=== PATIENT | female | born 1995 | race Caucasian/White ===

== ENCOUNTER 2023-09-16 09:48 | Outpatient (CLI) | payer BC, SELFPAY ==
--- NOTE | ~2023-09-16 | US_ITS ---
EXAMINATION: US OB <= 14 weeks fetus DATE: 09/16/2023 10:20 INDICATION: Uncertain gestational dates TECHNIQUE: Real-time transabdominal and transvaginal obstetric ultrasound. FINDINGS: No prior studies for comparison. The uterus measures 16.5 x 7.3 x 9.8 cm. There is an intrauterine gestational sac, with pole id entified. The crown rump length measures 5.37 cm, which correlates with a estimated gestational age of 12 weeks 0 days. heart tones are identified measuring 156 BPM. The ovaries are not visuali zed. IMPRESSION: 1. SL IUP with an EGA of 12 weeks, 0 days (EDC by current ultrasound of 03/30/2024). Reviewed, dictated and finalized at location A. 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 SL IUP with an EGA of 12 weeks, 0 days (EDC by current ultrasound of 024).
== END 2023-09-16 09:49 ==
PROVIDERS: PCP Advanced Practice Midwife; Visit Provider Advanced Practice Midwife
DX: Z36.87 Encounter for antenatal screening for uncertain dates (principal); Z3A.12 12 weeks gestation of pregnancy
CPT/HCPCS: 76801

== ENCOUNTER 2023-11-17 14:53 | Outpatient (CLI) | payer BC, SELFPAY ==
--- NOTE | ~2023-11-17 | US_ITS ---
EXAMINATION: US OB /maternal detail DATE: 11/17/2023 15:34 INDICATION: anatomy scan during second trimester TECHNIQUE: Multiple obstetric sonographic images performed. FINDINGS: There is a single living fetus in breech presentation. The placenta is posterior with caudal margin 3.9 cm from the internal cervical os. Amniotic fluid volume is subjectively normal. heart rate of 147 beats per minute. The following anatomy was identified as normal: Ventricles, choroid plexus, falx and cava septum pellucidum Cerebellum and cisterna magna Nuchal fold Upper lip Spine Heart Diaphragm Stomach Kidneys Bladder 3 vessel cord and cord insertion Bilateral upper and lower extremities including hands and feet The following biometric data were obtained: BPD: 4.7 cm -> 20 weeks 2 days Head circumference: 17.6 cm -> 20 weeks 1 days Abdominal circumference: 15.6 cm -> 20 weeks 5 days Femur length: 3.2 cm -> 19 weeks 6 days These measurements are concordant. Head circumference to abdominal circumference ratio: 1.16 (normal range 1.07-1.25). Estimated weight: 345 g (+/-) 52 g. or 12 oz. (+/-) 2 oz. IMPRESSION: 1. Single living fetus with breech presentation with heart rate of 147 bpm. 2. Gestational age by ultrasound of 20 weeks 2 day(s) (+/-) 1 week 3 day(s) with ultrasound estimat ed date of delivery (GENESIS) of 04/03/2024. Estimated weight is 19th percentile by Hadlock criteria when 03/30/2024 is used as the GENESIS. Please correlate with clinical information or earlier ultrasounds for most accurate GENESIS. 3. Normal survey. Reviewed, dictated and finalized at location A. IMPRESSION: 1. Single living fetus with breech presentation with heart rate of 147 b pm. 2. Gestational age by ultrasound of 20 weeks 2 day(s) (+/-) 1 week 3 day(s) w ith ultrasound estimated date of delivery (GENESIS) of 04/03/2024. Estimated w eight is 19th percentile by Hadlock criteria when 03/30/2024 is used as the GENESIS. Please correlate with clinical information or earlier ultrasounds for most accu rate GENESIS. 3. Normal survey.
== END 2023-11-17 14:54 ==
PROVIDERS: PCP Obstetrics & Gynecology Gynecology; Visit Provider Obstetrics & Gynecology Gynecology
DX: Z36.9 Encounter for antenatal screening, unspecified (principal)
CPT/HCPCS: 76805

== ENCOUNTER 2024-03-08 15:54 | Outpatient (CLI) | payer BC, SELFPAY ==
--- NOTE | ~2024-03-08 | US_ITS ---
EXAMINATION: US OB follow up DATE: 03/08/2024 16:18 INDICATION: COVID during third trimester . Assess amniotic fluid index. TECHNIQUE: Real-time ultrasound of the pelvis was performed. The interpreting radiologist was not pre sent for the study. COMPARISON: None. FINDINGS: There is a single living fetus in vertex presentation. The placenta is posterior and not low-lying. heart rate is 138 beats per minute (bpm). The amniotic fluid index is 19.7 cm, which is normal (5th%-95%: 7.7-24.9 cm at 36 weeks estimated gestational age). The following biometric data were obtained: BPD: 8.9 cm -> 36 weeks 0 days Head circumference: 32.3 cm -> 36 weeks 4 days Abdominal circumference: 32.4 cm -> 36 weeks 2 days Femur length: 7.0 cm -> 35 weeks 5 days These measurements are concordant. Head circumference to abdominal circumference ratio: 1.00 (normal range 0.92-1.08). Estimated weight: 2869 g (+/-) 430 g or 6 lbs. 5 oz. (+/-) 15 oz. IMPRESSION: 1. Single living fetus in vertex presentation with heart rate of 138 bpm. 2. Normal amniotic fluid index of 19.7 cm. 3. Estimated weight is 37th percentile by Hadlock criteria when 03/30/2024 is used as the estimat ed date of delivery (GENESIS). Please correlate with clinical information or earlier ultrasounds for most accurate GENESIS. Reviewed, dictated and finalized at location A. IMPRESSION: 1. Single living fetus in vertex presentation with heart rate of 138 bpm. 2. Normal amniotic fluid index of 19.7 cm. 3. Estimated weight is 37th percentile by Hadlock criteria when 03/30/2024 is used as the estimated date of delivery (GENESIS). Please correlate with clinical information or earlier ultrasounds for most accurate GENESIS.
== END 2024-03-08 15:55 ==
PROVIDERS: PCP Obstetrics & Gynecology Gynecology; Visit Provider Advanced Practice Midwife
DX: O99.891 Other specified diseases and conditions complicating pregnancy (principal); O98.519 Other viral diseases complicating pregnancy, unspecified trimester; U07.1 COVID-19
CPT/HCPCS: 76816

== ENCOUNTER 2024-04-02 16:50 | Inpatient (IN) | payer BC, SELFPAY ==
[2024-04-02] VITALS (44 sets, daily range): BP systolic 108–139; BP diastolic 54–74; PULSE 87–169; TEMP 36.7–37; O2SAT 98–100; BMI 27.3
--- NOTE | 2024-04-02 17:30 | WPDANESEPP ---
Anes - Eval Pre Procedure Procedure: Labor epidural Date/Time: 04/02/24 17:30 Surgeon: karlo Preop Diagnosis: Abdominal pain with contractions Pre Op Diagnosis: Labor Patient Data Age: 29 Gender: F Height: Weight: Allergies Allergy/AdvReac Type Severity Reaction Status Date / Time bacitracin Allergy Rash Verified 03/09/24 15:35 [From Neosporin ([id number])] neomycin Allergy Rash Verified 03/09/24 15:35 [From Neosporin ([id number])] polymyxin B Allergy Rash Verified 03/09/24 15:35 [From Neosporin ([id number])] Home Medications Medication Instructions Recorded Confirmed Type aspirin 81 mg tablet 81 mg PO DAILY 03/09/24 03/09/24 History prenat.vits,darshana,lgh-aute-uowxp 1 tablet 03/09/24 History : gestational age HCG: positive Patient hx anesthesia problems: none Family hx anesthesia problems: none Results Review: All pre-operative results and documents have been reviewed as part of the pre-operative evaluation. [facility] Past Medical History Medical History Heart murmur and not yet delivered Family History Family History Grandparent Heart disease Grandparent Dementia Grandparent Diabetes mellitus Social History Social History Substance use: never Spiritual care concerns: No Exam Day of Procedure 04/02/24 17:30 Patient weight: normal Airway: Mallampati scale class II
[2024-04-02 17:45] LABS: Basophils Percent Auto 0.2 % (0.2-1.2); Eosinophils Absolute Auto 0.1 K/mm3 (0-0.3); Eosinophils Percent Auto 0.8 % (0-4.4); Hematocrit 40.4 % (37.0-47.0); Hemoglobin 13.9 g/dL (12.0-15.0); Immature Granulocyte Absolute 0.06 K/mm3 (0.00-0.031); Immature Granulocyte Percent A 0.4 % (0-0.5); Lymphocytes Absolute Auto 2.24 K/mm3 (0.9-3.2); Lymphocytes Percent Auto 15.6 % (18.3-44.2); Mean Corpuscular HGB Conc 34.4 g/dl (32-36); Mean Corpuscular Hemoglobin 30.9 pg (26-34); Mean Corpuscular Volume 89.8 fl (80-100); Mean Platelet Volume 9.9 fl (7.4-10.4); Monocytes Absolute Auto 0.9 K/mm3 (0.1-0.6); Monocytes Percent Auto 6.5 % (2.6-8.5); Neutrophils Percent Auto 76.5 % (45.5-73.1); Platelet Count Result 285 k/mm3 (150-375); Red Cell Distribution Width 13.1 % (11.5-14.5); White Blood Count 14.4 K/mm3 (4.5-10.0)
[2024-04-02] MEDS: LACTATED RINGERS 1,000 ML 125 ML IV CONT (18:13)
[2024-04-02] MEDS: AMPICILLIN 2 GM/NS 100 ML 2 GM/100 ML BAG IVPB (18:13)
[2024-04-02 18:35] LABS: HIV 1/2 Ab P24 Ag Result Negative (Negative)
--- NOTE | 2024-04-02 18:35 | LDADM ---
This patient, Jaky Tsai, was admitted to Labor/Delivery/Recovery 109 on 04/02/24 at 16:50. Plans for labor, pain management and were discussed with patient. Patient/family oriented to hospital policies and general routines including ID bracelet, bed and alarms, visiting hours, pain management, procedures, bathroom and other care routines, personal items, smoking policy, room service/diet and guest tray routines, security routines, and visiting hours. Patient/Family are encouraged to report perceived risks to care and to ask questions if they do not understand what they are told or what they should do. See OBIX for further documentation.
[2024-04-02 18:52] LABS: Rapid Plasma Reagin Non-Reactive (NonReactive)
--- NOTE | 2024-04-02 19:33 | WPDOBADMIT ---
Obstetrics - Admit Note Admission Note: record reviewed. No pertinent additions to the history and/or any subsequent changes in the physical findings that are not consistent with the expected course of the were found. Additions to the history and/or subsequent changes in the physical findings follow. None.
[2024-04-02] MEDS: fentaNYL CITRATE INJ (*CRX) 100 MCG/2 ML VIAL 50 MCG IV PUSH (21:28)
[2024-04-02] MEDS: AMPICILLIN 1 GM/NS 50 ML 1 GM/50 ML BAG IVPB (22:10)
[2024-04-02] MEDS: ONDANSETRON INJ 4 MG/2 ML VIAL IV PUSH (23:49)
[2024-04-02] MEDS: FAMOTIDINE 20 MG/2 ML VIAL IV PUSH (23:49)
[2024-04-03] VITALS (50 sets, daily range): BP systolic 99–134; BP diastolic 52–98; PULSE 40–158; RESP 16–20; TEMP 36.6–37.1; O2SAT 77–100
--- NOTE | 2024-04-03 01:22 | PM.OBPNLAB ---
Pain Control Date/time seen: 04/03/24 01:18 Pain control: tolerating well and epidural Comments: pushing with contractions Pelvic Exam Amniotic membrane status: Ruptured (meconium) Status status: Category ll Assessment and Plan Assessment: active labor Comments: pushing with contractions with RN. Much edema noted to introitus. Suspect OP position. Plan to remove sneed catheter with pushing and reposition pt frequently to allow for optimal descent. Anticipate vaginal .
--- NOTE | 2024-04-03 01:25 | P.PCNOB_ITS ---
OB - Vaginal Delivery Note Procedure Delivery date: 04/03/24 Events: Positive Group B Strep (GBS) and Other (covid infection in pregancy) Induction method: None Delivery monitor: External FHT and External Uterine Route of delivery: Episiotomy description: None Laceration Description: Perineal - 2nd Degree and Labial (right) Delivery repair: vicryl Specimen: No Quantitative Blood Loss (ml): 375 Anesthesia type: Epidural Disposition: Floor Complications: No immediate complications Narrative: Jaky arrived in spontaneous labor and made steady cervical change to complete dilation. She pushed well with contractions. Baby originally in OPP position and rotated to SHERITA. She brought the head to complete crown. With the next push, she gently delivered the head followed by the anterior shoulder. With the next maternal push the posterior shoulder and the remainder of the infant were delivered. The was placed on the maternal abdomen and dried and stimulated by nursery staff. After 1 minute of life, the cord was doubly clamped and cut. Cord blood, cord gases, and cord segment were obtained. The placenta delivered spontaneously in the Schultze presentation. A second- degree perineal laceration involving the right labia was repaired in the usual fashion. There was excellent hemostasis and uterine tone. All delivery counts correct. Mother and baby skin to skin in the delivery room. [place] Baby Date of : 04/03/24 Time of : 02:10 Gestational Age by Date: 40 Infant gender: Female presentation: vertex position: Right Occiput Anterior Placenta delivery description: Spontaneous Cord Vessel Description: 3 Vessels and Delayed Cord Clamping score one minute: 8 score five minutes: 9
--- NOTE | 2024-04-03 01:26 | PM.OBDSVD ---
DS: Admitting Diagnosis Discharge Date 04/05/24 Admitting Diagnosis 29 y.o. G1PO at term Spontaneous labor DS: Discharge Diagnosis Discharge Diagnosis (1) (normal spontaneous vaginal delivery): Code(s): O80 - Encounter for full-term uncomplicated delivery Status: Acute (2) Mother currently breastfeeds: Status: Acute OB - DS: Summary Hospital Course Hospital Course: Uncomplicated OB Procedures : Ultrasound OB Procedures Intrapartum: Spontaneous Vag Delivery and GBS prophylaxis OB Procedures: : None Peripartum Data Infant Delivery Method: Natural Vaginal Laceration Description: Perineal - 2nd Degree and Labial (right) Episiotomy description: None complications: none Status at Discharge Functional status at discharge: independent ambulation Overall status at discharge: patient is progressing back to baseline Time Spent with Patient Time attestation: Total time spent providing and/or coordinating discharge services: Exam Narrative: Alert and oriented. Mood is pleasant and cooperative. Perineum with minimal edema. Fundus firm and below umbilicus. Const: General: cooperative, healthy appearing, no acute distress and alert Orientation/consciousness: patient oriented x3 Limitations: no limitations Resp: Effort & Inspection: normal respiratory effort and able to speak in complete sentences Cardio: Rate: regular rate GI: Inspection: normal to inspection : General: Yes bladder normal to palpation External Female Exam: other (lochia WNL) Bimanual exam- vagina & uterus: bladder normal to palpation Other: Fundus firm and below U Skin: General skin exam: normal color and no rashes or lesions noted Neuro: General: patient oriented x3 and moves all extremities Cognition (Neuro): normal cognition Extrem: General: normal to inspection and no calf tenderness Psych: Appearance: grossly normal Mental Status: mental status grossly normal Affect: normal affect Thought process: Normal thought process present DS: Data Data Completed and Pending Labs on day of discharge: Labs from last 24 hours 04/02/24 17:35 WBC 14.4 H RBC 4.50 Hgb 13.9 Hct 40.4 MCV 89.8 MCH 30.9 MCHC 34.4 RDW 13.1 Plt Count 285 MPV 9.9 Immature Gran % (Auto) 0.4 Neut % (Auto) 76.5 H Lymph % (Auto) 15.6 L Gordon % (Auto) 6.5 Eos % (Auto) 0.8 Baso % (Auto) 0.2 Lymph # (Auto) 2.24 Gordon # (Auto) 0.9 H Eos # (Auto) 0.1 Baso # (Auto) 0.0 Abs Immat Gran (auto) 0.06 H Absolute Neuts (auto) 11.0 H Absolute Nucleated RBC 0.000 Nucleated RBC % 0.0 RPR Non-reactive HIV 1&2 Ab/P24 Ag 4thGn Negative Blood Type B Positive Antibody Screen Negative Discharge Plan Discharge Attending physician on discharge: Tiny Ga Discharging Clinician: Melissa Hines Patient Disposition: Home, Self-Care Activity: may shower and pelvic rest Diet: as tolerated Wound Care Instructions: follow printed instructions Discharge Instructions: Continue taking your vitamin and any other supplements as previously directed (Examples: Iron, Vitamin D). You may take Tylenol 1000mg over the counter every 6 hours as needed for pain. Do not exceed 4000mg of Tylenol daily. You may continue using tucks pads and dermoplast spray if needed for a few more days. Depression Notify provider for signs or symptoms. These may include- Feelings: Feeling anxious, angry, hopeless, guilt, or loss of interest/pleasure in activities you normally enjoy. Mood swings or panic attacks. General: Extreme fatigue, loss of your appetite, feeling restless. Crying excessively, irritability, insomnia Psychological: Lack of concentration, depression or fear, unwanted thoughts Weight: Significant gain or loss Safety: Thoughts of harming yourself or your baby. Patient Instructions: Antibiotic Form
[2024-04-03] MEDS: LACTATED RINGERS 1,000 ML 125 ML IV CONT (01:59)
[2024-04-03] MEDS: AMPICILLIN 1 GM/NS 50 ML 1 GM/50 ML BAG IVPB (02:02)
[2024-04-03] MEDS: OXYTOCIN 30 UNITS/NS 500 ML 30 UNITS/500 ML BAG 999 UNITS IV CONT (02:14)
[2024-04-03] MEDS: OXYTOCIN 30 UNITS/NS 500 ML 30 UNITS/500 ML BAG 125 UNITS IV CONT (02:45)
[2024-04-03] MEDS: BENZOCAINE 20% AER SPR (*SP) 56 GM CAN 1 SPRAY TOPICAL (05:06)
[2024-04-03] MEDS: WITCH HAZEL 40 PADS 1 PAD TOPICAL (05:07)
--- NOTE | 2024-04-03 05:15 | PC.NURSE ---
Patient transferred to post room #284 via ( W/C ). Support person present. Oriented to unit, room, information board, rooming in, admission packet and security measures. Parents verbalize understanding.
[2024-04-03] MEDS: MULTIVIT/MIN/PREN/FOL AC/IRON TABLET 1 TAB PO (08:42)
[2024-04-03] MEDS: IBUPROFEN 600 MG TABLET PO (08:43)
--- NOTE | 2024-04-03 11:05 | PC.NURSE ---
0900- To patient room to make introductions and write number on board. Mother is in the bathroom and dad will let mom know to call out for feeding assistance. 1105- Discussed with mother her successes, concerns and any questions she has. We reviewed working with the , supporting breast, protecting her nipples with an optimal deep latch, good positioning, and good hand washing. Encouraged understanding the benefits of skin to skin, responding to feeding cues, frequencies of feeding 8-12 times in 24 hours (approximately 2-3 hours), duration of feedings, milk production, intake/output feeding sheet and signs of adequate intake encouraging swallowing at the breast. Reviewed positioning and alignment, supporting breast, off-centered (asymmetrical latch) and leading with the chin with big, open, wide gape. Infant latched optimally to the [left] breast in [cross cradle] position. Education given to the mother of how to visualize the suckling (with good rocking jaw motion) swallows (dropping of the lower jaw) and how to listen for drinking at the breast (the ka sound). The was [able] to maintain latch without discomfort to mother. Nipple care reviewed with optimal latch, good positioning and using clean hands when touching her breast. Mother broke suction and relatched baby when the latch became shallow and her nipple was pinched. She knows the look/feel of a shallow latch and how to relatch to protect her nipples and increase baby's milk transfer. Mother voiced understanding of the education shared, to call for assistance if the does not latch or if there is discomfort with . Reported to the Primary RN.
[2024-04-04 04:32] LABS: Hematocrit 25.9 % (37.0-47.0); Hemoglobin 8.4 g/dL (12.0-15.0)
[2024-04-04] MEDS: IBUPROFEN 600 MG TABLET PO (07:31)
[2024-04-04] MEDS: DOCUSATE SODIUM 100 MG CAPSULE PO ×2 (07:32→16:50)
[2024-04-04] MEDS: MULTIVIT/MIN/PREN/FOL AC/IRON TABLET 1 TAB PO (07:32)
[2024-04-04] MEDS: POLYSACCHARIDE IRON COMPLEX 150 MG CAPSULE PO ×2 (07:34→16:50)
[2024-04-04 08:05] VITALS: BP 121/64; PULSE 89; RESP 16; TEMP 36.9; O2SAT 100
--- NOTE | 2024-04-04 08:56 | PC.NURSE ---
Patient requested assistance with . Upon entering room patient had latched but patient expressed latch was painful. was removed from breast and nipple was misshapen. Assisted patient with relatching infant and expressed the importance of making sure baby had mouth open wide and obtaining a deep latch on the nipple. Once was latched, no more pain was experienced by patient. Patient mentioned concern that would stop and pause throughout the feeding, I encouraged patient that this was normal and that she should continue to encourage infant to keep feeding. Patient also expressed that shes been experiencing bad allergies and asked what would be okay for her to take at home. Informed patient that I would verify what medications were appropriate to take while breast feeding and let her know.
--- NOTE | 2024-04-04 10:00 | PC.NURSE ---
This RN at bedside to give mother a list of medication that is safe while for allergy symptoms. Patient was taking Sudafed, I advised her to discontinue use of Sudafed and take one of the following medications instead:Claritin, Zyrtec, Lilian or Flonase. Mother states understanding.
--- NOTE | 2024-04-04 10:53 | WPDANLDPN2 ---
Anes-Prog Note L&D Date/Time: 04/04/24 10:53 Comfortable throughout: labor and delivery Neuraxial method: epidural Epidural/Spinal procedure site: clean & non-tender Neuro status: Neuro function grossly intact. Cardiovascular status: normal Respiratory status: normal Airway patency: baseline Mental status: baseline Post-Op hydration status: normal Vital Signs: Last Vital Signs Temp 36.9 C 04/04/24 08:05 Pulse 89 04/04/24 08:05 Resp 16 04/04/24 08:05 BP 121/64 04/04/24 08:05 Pulse Ox 100 04/04/24 08:05 O2 Del Method Room Air 04/04/24 08:00 Pain score (VAS): 08/02 I/O: Intake & Output 04/03/24 04/04/24 04/04/24 23:59 07:59 15:59 Intake Total 200 Balance 200 Post-procedural complaints: none Patient feedback: Patient satisfied with anesthetic care.
--- NOTE | 2024-04-04 16:19 | PC.NURSE ---
1515. This patient Jaky called out for help with latching . latched optimally to the left breast in cross cradle position. Education given to the mother of how to visualize the suckling (with good rocking jaw motion) swallows (dropping of the lower jaw) and how to listen for drinking at the breast (the ka sound). The was able to maintain latch without discomfort to mother. Nipple care reviewed with optimal latch, good positioning and using clean hands when touching her breast. Resources used to facilitate learning were used from the visual handouts. Mother voiced understanding of the education shared, to call for assistance if the does not latch or if there is discomfort with . Also reviewed safe allergy meds to take while with mom. Reported to the Primary RN.
[2024-04-04] MEDS: ACETAMINOPHEN 325 MG TABLET 650 MG PO (16:49)
[2024-04-05 00:02] VITALS: BP 117/79; PULSE 82; RESP 18; TEMP 36.9; O2SAT 100
--- NOTE | 2024-04-05 07:29 | PM.OBPNVD ---
OB - PN: Subj Subjective Date/time seen: 04/05/24 07:29 Interval history: Post Day 2 from [facility]. Doing well. Urinating without difficulty. Denies passing any large clots. Denies dizziness with ambulating. Tolerating po food and fluids. Bonding with infant. Patient comments: pain well controlled baby status: nursing well feeding status: exclusively breast feeding OB - PN: Obj Data Labs 04/04/24 03:33 OB - PN A/P Assessment and Plan (1) [facility] (normal spontaneous vaginal delivery): Code(s): O80 - Encounter for full-term uncomplicated delivery Status: Acute (2) Mother currently breastfeeds: Status: Acute Plan day: 2 Plan: discharge home Time Spent With Patient Time: Total time spent is greater than 50% in coordination of care (as documented) at patient's floor/unit and/or counseling patient: Review of Systems Review of Systems: All systems reviewed & are unremarkable except as noted in HPI and below Exam Narrative: Alert and oriented. Mood is pleasant and cooperative. Perineum with minimal edema. Fundus firm and below umbilicus. Const: General: cooperative, healthy appearing, no acute distress and alert Orientation/consciousness: patient oriented x3 Limitations: no limitations Resp: Effort & Inspection: normal respiratory effort and able to speak in complete sentences Cardio: Rate: regular rate GI: Inspection: normal to inspection : General: Yes bladder normal to palpation External Female Exam: other (lochia WNL) Bimanual exam- vagina & uterus: bladder normal to palpation Other: Fundus firm and below U Skin: General skin exam: normal color and no rashes or lesions noted Neuro: General: patient oriented x3 and moves all extremities Cognition (Neuro): normal cognition Extrem: General: normal to inspection and no calf tenderness Psych: Appearance: grossly normal Mental Status: mental status grossly normal Affect: normal affect Thought process: Normal thought process present
[2024-04-05 08:10] VITALS: BP 118/62; PULSE 83; RESP 16; TEMP 36.6; O2SAT 98
[2024-04-05] MEDS: DOCUSATE SODIUM 100 MG CAPSULE PO (08:47)
[2024-04-05] MEDS: POLYSACCHARIDE IRON COMPLEX 150 MG CAPSULE PO (08:47)
[2024-04-05] MEDS: MULTIVIT/MIN/PREN/FOL AC/IRON TABLET 1 TAB PO (08:47)
[2024-04-05] MEDS: IBUPROFEN 600 MG TABLET PO (08:47)
--- NOTE | 2024-04-05 10:21 | PC.NURSE ---
Patient viewed the discharge video Mother & Baby Care, The First Two Weeks . Patient was given the opportunity and encouraged to ask questions. Patient verbalized understanding of information shared and has been given the mother/baby guide for home reference.
--- NOTE | 2024-04-05 10:45 | PC.NURSE ---
Consulted with mother concerning needs and she shared her ability to independently latch infant optimally without pain. Mother is feeding appropriately for growth of and understands stimulating to eat if needed. Infant has had appropriate feedings in the last 24 hours meets the outcomes for weight, output, blood sugar and jaundice at this time. Reinforced understanding of milk production, transition of milk, signs of adequate intake, transition of stool, prevention/relief of engorgement, plugged ducts, mastitis, responsive watching for feeding cues, the different methods of stimulating to breastfeed 1-3 hours after the start of the last feeding, community resources, and when to call a provider using the resource of the feeding sheet along with the mom and baby guide. Hydrogel cooling pads given to mother for sore nipples. Mother voiced understanding of the information shared, is confident to continue effectively her at home, when to call for assistance, denies any additional assistance or education at this time. Reported to the Primary RN.
--- NOTE | 2024-04-05 11:00 | PC.NURSE ---
This RN called to bedside r/t mother stating that is favoring one side. Discussed and demonstrated different positions to help with favoring one breast. Mother was able to latch infant in the laid back position on her right breast successfully.
[2024-04-06 11:32] VITALS: BP 125/79; PULSE 90; RESP 18; TEMP 37.1; O2SAT 99
== END 2024-04-05 14:40 | disposition home or self-care (01) | DRG 807 ==
LOC: ANHLDR 04-03 01:28 → ANHOB2 04-03 05:23
PROVIDERS: Advanced Practice Midwife; Admitting Provider Obstetrics & Gynecology Gynecology; PCP Internal Medicine; Visit Provider Obstetrics & Gynecology Gynecology
DX: O99.824 Streptococcus B carrier state complicating childbirth (principal); Z37.0 Single live birth; O70.1 Second degree perineal laceration during delivery; O77.0 Labor and delivery complicated by meconium in amniotic fluid; Z3A.40 40 weeks gestation of pregnancy
CPT/HCPCS: 36415; 85014; 85018; 85025; 86592; 86703; 86850; 86900; 86901; A9270; G0432; J0290; J2405; J2590; J2795; J3010; J7120

== ENCOUNTER 2024-11-05 08:26 | Outpatient (CLI) | payer SELFPAY ==
--- NOTE | ~2024-11-05 | US_ITS ---
US breast RT limited INDICATION: Palpable right breast abnormality TECHNIQUE: Dedicated Limited right breast ultrasound COMPARISON: No prior studies for comparison. FINDINGS: The right breast is/are composed of normal heterogeneous echotexture without focal solid or cystic mass. IMPRESSION: 1: Normal limited right breast ultrasound. BI-RADS CATEGORY 1 - NEGATIVE Reviewed, dictated and finalized at location []
== END 2024-11-05 08:27 | disposition home or self-care (01) ==
PROVIDERS: PCP Internal Medicine; Visit Provider Nurse Practitioner
DX: N60.01 Solitary cyst of right breast (principal)
CPT/HCPCS: 76642

== ENCOUNTER 2025-06-13 15:23 | Outpatient (CLI) | payer SELFPAY ==
--- NOTE | ~2025-06-13 | US_ITS ---
EXAM/PROCEDURE: US OB <= 14 weeks fetus HISTORY: Uncertain Dates COMPARISON: None available. TECHNIQUE: Viability and dates FINDINGS: A single viable intrauterine gestation is present with heart rate of 164 bpm. EGA by dates 9 weeks 1 day EGA by ultrasound 8 weeks 2 days EDC by dates and ultrasound January 15 and January 21, 2026 The uterus measures 11.6 x 6.0 x 7.2 cm Right ovary: 6.5 x 3.2 x 5.0 cm. Corpus luteal cyst present measuring 3.3 x 2.4 x 3.1 cm. The right ovary otherwise appears normal. Left ovary appears to 0.8 x 1.8 x 2.2 cm and appears normal. No free fluid seen. IMPRESSION: Directed exam demonstrating a single viable intrauterine gestation with concordant dates and heart rate of 164 bpm. Reviewed, dictated and finalized at location A. 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
== END 2025-06-13 15:24 | disposition home or self-care (01) ==
LOC: MICIMG 15:30
PROVIDERS: PCP Internal Medicine; Visit Provider Obstetrics & Gynecology Gynecology
DX: Z36.87 Encounter for antenatal screening for uncertain dates (principal)
CPT/HCPCS: 76801